=== PATIENT | female | born 1985 | race Caucasian/White ===

== ENCOUNTER → 2018-06-12 | Outpatient (CLI) | payer OTHER | LOC: FIMAGING 10:00 | PROVIDERS: ATTEND Obstetrics & Gynecology | DX: O44.42 Low lying placenta NOS or without hemorrhage, second trimester (principal); O99.282 Endocrine, nutritional and metabolic diseases complicating pregnancy, second trimester; E03.9 Hypothyroidism, unspecified; Z3A.19 19 weeks gestation of pregnancy ==

== ENCOUNTER → 2018-08-28 | Outpatient (CLI) | payer OTHER | LOC: FIMAGING 08:35 | PROVIDERS: ATTEND Obstetrics & Gynecology | DX: Z34.03 Encounter for supervision of normal first pregnancy, third trimester (principal); Z3A.30 30 weeks gestation of pregnancy ==